=== PATIENT | female | born 1995 | race Asian ===

== ENCOUNTER 2018-12-29 16:25 | Emergency (ER) | payer BC ==
[~2018-12-29] VITALS: Ht 157.5 cm; Wt 56.4 kg
[2018-12-29 16:53] VITALS: Ht 157.5 cm; Wt 56.4 kg
[2018-12-29 17:53] LABS: BASOPHIL % 0.9 % (0-2); PLATELET COUNT 345 x10^3mcL (130-400); RED CELL DISTRIBUTION WIDTH 13.4 % (11.5-14.5)
[2018-12-29 18:01] LABS: CALCIUM 8.7 mg/dL (8.5-10.1); CARBON DIOXIDE 28.9 mmol/L (21-32); CHLORIDE SERUM 103 mmol/L (98-107); CREATININE SERUM 0.7 mg/dL (0.6-1.0); GFR1 > 60 mL/min; GLUCOSE SERUM 89 mg/dL (74-106); POTASSIUM SERUM 3.8 mmol/L (3.5-5.1); SODIUM SERUM 140 mmol/L (136-145)
[2018-12-29 18:05] LABS: ALBUMIN 3.9 g/dL (3.4-5.0); ALKALINE PHOSPHATASE 87 U/L (46-116); ALT/SGPT 35 U/L (14-59); AMYLASE 77 U/L (25-115); AST/SGOT 32 U/L (15-37); BILIRUBIN TOTAL 0.8 mg/dL (0.20-1.00); LIPASE 136 IU/L (73-393); TOTAL PROTEIN, SERUM 7.6 g/dL (6.4-8.2)
[2018-12-29 18:13] LABS: microscopic required? NO
[2018-12-29 18:42] LABS: UA SPECIFIC GRAVITY <=1.005 (1.005-1.035); urine erythrocyte NEGATIVE (NEGATIVE)
[2018-12-29 19:07] LABS: AMPHETAMINE QUAL UR NONE DETECTED (See below)
[2018-12-29 20:07] VITALS: BP 103/64
== END 2018-12-29 20:45 | disposition home or self-care (01) ==
LOC: ED 16:25
PROVIDERS: Emergency Medicine
DX: R11.2 Nausea with vomiting, unspecified (principal)
CPT/HCPCS: J2405; J3490; J7030